=== PATIENT | female | born 1990 | race Caucasian/White ===

== ENCOUNTER 2018-05-28 07:54 | Outpatient (CLI) | payer BC ==
[2018-05-28 09:16] LABS: #Basophils 0.1 thou/uL (0.0-0.2); #Eosinphils 0.1 thou/uL (0.0-0.7); #Lymphocytes 1.7 thou/uL (1.20-3.40); #Monocytes 0.5 thou/uL (0.11-0.59); #Neutrophils 4.3 thou/uL (1.40-6.50); %Basophils 0.8 % (0.0-1.0); %Lymphocytes 25.6 % (21.0-51.0); %Monocytes 7.2 % (0.0-10.0); %Neutrophils 65.5 % (42.0-75.0); Bilirubin Negative (Negative); Blood, Urine Negative (Negative); Clarity TURBID (Clear); Glucose, Urine (Dipstick) Negative (Negative); Hemoglobin 13.4 g/dL (12.0-16.0); Leukocyte Negative (Negative); Mean Corpuscular HGB CONC 32.7 g/dL (32.0-36.0); Mean Corpuscular Hemoglobin 30.3 pg (27.0-31.0); Mean Corpuscular Volume 92.7 fL (78.0-98.0); Nitrite Negative (Negative); Platelet Count 272 thou/uL (130-400); Protein, Urine (Dipstick) Negative (Neg-Trace); RBC Distribution Width 12.3 % (11.5-14.5); Red Blood Cell (RBC) Count 4.43 mill/uL (4.20-5.40); Specific Gravity, Urine 1.015 (1.002-1.036); Urobilinogen 0.2 mg/dL (0.2-1.0); White Blood Cell (WBC) Count 6.6 thou/uL (4.8-10.8)
[2018-05-28 09:19] LABS: Bacteria/HPF None Seen HPF (None Seen); Hyaline Casts/LPF 0-3 HYALINE CAST LPF (0-3 Hyaline); Pathc Cast-AUWi Flag 0.87 (0-2.49); Squamous Epithelial 0-3 HPF (0-3); WBC/HPF 0-3 HPF (0-3)
[2018-05-28 09:33] LABS: Anion Gap 11 mmol/L (10-20); BUN (Urea Nitrogen) 10 mg/dL (7.0-18.7); Calc. Creatinine Clearance 0 mL/min (70-130); Calcium 10.4 mg/dL (7.8-10.44); Carbon Dioxide 27 mmol/L (22-29); Chloride 105 mmol/L (98-107); Estimated GFR-MDRD Greater than 90; Glucose 102 mg/dL (70-105); Potassium 4.2 mmol/L (3.5-5.1); Sodium 139 mmol/L (136-145)
[2018-05-28 09:34] LABS: BHCG - Serum Negative (NEGATIVE); Pregs Control Bar Appear? YES (CONTROL BAR)
[2018-05-28 09:35] LABS: Pregs Control Background? CLEAR/WHITE (CLR/WHITE)
[2018-05-28 09:42] LABS: RBC/HPF 0-3 HPF (0-3)
[2018-05-28 09:43] LABS: Crystals/HPF 1+ AMORPH PHOS HPF (Negative)
--- NOTE | 2018-05-28 17:09 | EKG ---
Test Reason : Blood Pressure : / mmHG Vent. Rate : 073 BPM Atrial Rate : 073 BPM P-R Int : 124 ms QRS Dur : 096 ms QT Int : 404 ms P-R-T Axes : 078 084 073 degrees QTc Int : 445 ms Normal sinus rhythm with sinus arrhythmia Poor anterior R wave progression No previous ECGs available Confirmed by DR. Danni HAYDEN ([id number]) on 05/28/2018 5:09:15 PM Referred By: EDILBERTO Confirmed By:DR. Danni HAYDEN
== END 2018-05-28 07:55 | disposition home or self-care (01) ==
LOC: LABBT 07:54
PROVIDERS: ATTEND Orthopaedic Surgery Hand Surgery
DX: Z01.818 Encounter for other preprocedural examination (principal); S56.421A Laceration of extensor muscle, fascia and tendon of right index finger at forearm level, initial encounter
CPT/HCPCS: 80048; 81001; 84703; 85025; 93005; 93010

== ENCOUNTER 2018-06-01 09:51 | Day surgery (SDC) | payer BC ==
[2018-05-28 08:22] VITALS: BMI 20.8
[2018-06-01] MEDS ORDERED: Scopolamine 1.5 mg/72 hour Patch ONE (11:14)
[2018-06-01] MEDS ORDERED: Famotidine/PF 20 mg/2ml Vial ONE (11:14)
[2018-06-01] MEDS ORDERED: Ondansetron HCl/PF 4 MG/2 ML Vial ONE (11:15)
[2018-06-01] MEDS ORDERED: CEFAZOLIN/Water 2 GM/20 ML SYRINGE ONE (11:47)
[2018-06-01] MEDS ORDERED: Hydrocortisone Sod Succ/PF 100 mg/2 ml Vial ONE ×3 (12:17→12:42)
[2018-06-01] MEDS ORDERED: PROPOFOL 200 MG/20 ML VIAL ONE (12:42)
[2018-06-01] MEDS ORDERED: Lidocaine 1% PF 5 ML VIAL ONE (12:42)
[2018-06-01] MEDS ORDERED: Bupivacaine PF 0.5% 30 ML VIAL ONE (13:12)
[2018-06-01] MEDS ORDERED: Bacitracin Zinc Ointment 30 gm TUBE ONE (13:12)
[2018-06-01] MEDS ORDERED: Sodium Chloride 0.9% 10 ML ONE (13:12)
[2018-06-01] MEDS ORDERED: Betamet Acet/Betamet Na Ph 30 MG/5 ML VIAL ONE (13:12)
[2018-06-01] MEDS ORDERED: Midazolam HCl 2 mg/2 ml Vial ONE (13:16)
[2018-06-01] MEDS ORDERED: Fentanyl 100 MCG/2 ML VIAL ONE (13:16)
[2018-06-01] MEDS ORDERED: Propofol 500 MG/50 ML VIAL ONE (13:20)
[2018-06-01] MEDS ORDERED: Ketorolac Tromethamine 30 MG/ML VIAL ONE (15:10)
--- NOTE | 2018-06-01 17:15 | OP ---
DATE OF PROCEDURE: 06/01/2018 PREOPERATIVE DIAGNOSES: Right index finger extensor tendon laceration. Finding 5 mm granuloma with over a 4 mm incompletely healed tendon laceration without separation and underlying joint exposed. PROCEDURE PERFORMED: 1. Excisional biopsy of granuloma extensor tendon. 2. Repair of defect, 4.5 mm wide extensor tendon through and through laceration, zone 3 over the pro ximal phalangeal joint. COMPLICATIONS: None. TOURNIQUET TIME: 14 minutes. PROCEDURES PERFORMED: 1. Excisional biopsy of granuloma. 2. Repair of underlying extensor tendon laceration. INDICATIONS: The patient is now 2 months since a sharp kitchen utensils stab wound in a dishwashing environment to both the index and the long finger with no long finger pain, but complains of when she attempts to extend the index finger of his right hand. She has pain, especially with resisted exten jewell. We found this in the clinic and felt she probably had an incompletely or partially healed exte nsor mechanism laceration. The operation was done to restore function and prevent further propagatio n of the tear and alleviate pain. DESCRIPTION OF PROCEDURE: After successful local Marcaine block with 10 mL infiltrative procedure at the metacarpophalangeal joint level along with propofol IV analgesia, we then had the patient underg o full prepping, draping, and then limb exsanguination inflation and inflated to 250 mmHg pressure. We then made a zigzag incision extended on the 5 mm transverse laceration on the mid aspect of the do rsal index finger of proximal phalangeal joint. Here we carried through the skin and subcutaneous ti ssue immediately saw thickening consistent with granuloma that was yellow, walker and gelatinous. We excised this underneath was an incompletely healed extensor tendon laceration as suspected. We then freshened up the edges of the lacerated tendon, removed all remnants of granuloma and chronic infilt rative tissue, repaired it with one simple suture between the [id number] buried. The patient then had the tourniquet deflated. Hemostasis obtained. The granuloma specimen sent at [facility] in part to the lab and hemostasis obtained for closed wound with interrupted 4-0 nylon in mattre ss pattern and the patient left the operating room with a finger to splint and no evidence of anesthe tic or operative complication. The splint had a metal bar held in place with Coban to block extensio n and flexion of the proximal phalangeal joint of the index finger.
== END 2018-06-01 15:55 | disposition home or self-care (01) ==
LOC: SDC 09:51
PROVIDERS: ATTEND Orthopaedic Surgery Hand Surgery
PROC: 0LM70ZZ Reattachment of Right Hand Tendon, Open Approach (ICD-10-PCS; principal; 2018-06-01)
DX: S66.320A Laceration of extensor muscle, fascia and tendon of right index finger at wrist and hand level, initial encounter (principal); J45.909 Unspecified asthma, uncomplicated; E27.40 Unspecified adrenocortical insufficiency; Z79.52 Long term (current) use of systemic steroids; Z79.899 Other long term (current) drug therapy; W26.0XXA Contact with knife, initial encounter
CPT/HCPCS: 88305; 96374; A4216; J0702; J1720; J1885; J2001; J2250; J2405; J2704; J3010; J3490; S0020; S0028

== ENCOUNTER 2019-08-25 14:29 | Emergency (ER) | payer BC ==
[2019-08-25 15:09] LABS: Bilirubin Negative (Negative); Blood, Urine Moderate (Negative); Glucose, Urine (Dipstick) Negative (Negative); Leukocyte Negative (Negative); Nitrite Negative (Negative); Protein, Urine (Dipstick) Negative (Neg-Trace); Urobilinogen 0.2 mg/dL (Less than 2)
[2019-08-25 15:10] LABS: Clarity Hazy (Clear)
[2019-08-25 15:11] LABS: #Basophils 0.1 thou/uL (0.0-0.2); #Eosinphils 0.1 thou/uL (0.0-0.7); #Lymphocytes 1.4 thou/uL (1.20-3.40); #Monocytes 0.5 thou/uL (0.11-0.59); #Neutrophils 5.4 thou/uL (1.40-6.50); %Basophils 0.9 % (0.0-1.0); %Eosinophils 0.9 % (0.0-10.0); %Lymphocytes 18.7 % (21.0-51.0); %Monocytes 6.8 % (0.0-10.0); %Neutrophils 72.7 % (42.0-75.0); Hemoglobin 13.5 g/dL (12.0-16.0); Mean Corpuscular HGB CONC 33.7 g/dL (32.0-36.0); Mean Corpuscular Hemoglobin 30.1 pg (27.0-31.0); Mean Corpuscular Volume 89.4 fL (78.0-98.0); Platelet Count 243 thou/uL (130-400); RBC Distribution Width 12.2 % (11.5-14.5); Red Blood Cell (RBC) Count 4.48 mill/uL (4.20-5.40); White Blood Cell (WBC) Count 7.5 thou/uL (4.8-10.8)
[2019-08-25 15:15] LABS: Bacteria/HPF 2+ HPF (None Seen); WBC/HPF 0-3 HPF (0-3)
[2019-08-25] MEDS ORDERED: Ondansetron PF 4 MG/2 ML Vial ONE (15:20)
[2019-08-25] MEDS ORDERED: Morphine 4 MG/ML VIAL ONE (15:20)
--- NOTE | 2019-08-25 15:21 | CT ---
CT Stone Protocol: 08/25/2019 2:55 PM HISTORY: Left flank pain COMPARISON: None. TECHNIQUE: Multiple contiguous axial images were obtained and a CT of the abdomen and pelvis without IV contrast . Coronal and sagittal reformats were performed. FINDINGS: This examination is limited for the evaluation of solid organs and vascular structures due to the lac k of intravenous contrast. Lower Chest: within normal limits. Abdomen: Liver: within normal limits. Bile Ducts: Normal caliber. Gallbladder: No calcified gallstones. Normal caliber wall. Pancreas: within normal limits. Spleen: within normal limits. Adrenals: within normal limits. Kidneys: within normal limits. Pelvis: Reproductive Organs: No pelvic masses. Ureters: within normal limits. Bladder: within normal limits. Bowel: Normal caliber. Normal appendix. Mesenteric Lymph Nodes: No enlarged mesenteric lymph nodes. Peritoneum: No free air, no fluid collection. Trace free fluid in the pelvis is likely physiologic. Vessels: Normal caliber aorta Retroperitoneum: within normal limits. Abdominal Wall: within normal limits. Bones: Unremarkable. IMPRESSION: No evidence of acute intraabdominal or pelvic abnormality.
[2019-08-25 15:22] LABS: Anion Gap 14 mmol/L (10-20); BUN (Urea Nitrogen) 10 mg/dL (7.0-18.7); Calc. Creatinine Clearance 0 mL/min (70-130); Calcium 9.9 mg/dL (7.8-10.44); Carbon Dioxide 26 mmol/L (22-29); Chloride 105 mmol/L (98-107); Estimated GFR-MDRD Greater than 90; Glucose 102 mg/dL (70-105); Potassium 3.4 mmol/L (3.5-5.1); Sodium 142 mmol/L (136-145)
== END 2019-08-25 16:35 | disposition home or self-care (01) ==
LOC: SCSER 14:29
DX: R10.9 Unspecified abdominal pain (principal); R31.29 Other microscopic hematuria; J45.909 Unspecified asthma, uncomplicated; F41.9 Anxiety disorder, unspecified; Z79.899 Other long term (current) drug therapy
CPT/HCPCS: 74176; 80048; 81003; 81015; 85025; 96361; 96374; 96375; J2270; J2405